=== PATIENT | male | born 1965 | race Hispanic/Latino ===

== ENCOUNTER 2019-09-12 | Emergency (ER) | payer SELFPAY ==
[2019-09-12] MEDS ORDERED: BACTRIM DS1 TAB PO (12:00)
== END 2019-09-12 12:31 | disposition home or self-care (01) | DRG 603 ==
DX: L03.311 Cellulitis of abdominal wall (principal); I10 Essential (primary) hypertension

== ENCOUNTER 2019-12-15 19:25 | Inpatient (IN) | payer SELFPAY ==
[~2019-12-15] VITALS: Ht 165.1 cm; Wt 92.5 kg
[~2019-12-15 19:25] MED LIST: BACTRIM DS1 TAB PO
--- NOTE | 2019-12-15 19:34 | NUR ---
REGISTRATION NOTIFIED US THAT A PT WITH LEFT HAND NUMBNESS IS OUTSIDE. PT STATES THAT PART OF IS LEFT CHEEK STARTED TO GO NUMB YESTERDAY MORNING. UNKNOWN EXACT TIME. PT STATES DECREASE SENSATION TO LEFT ARM. CHARGE NURSE NOTIFIED. PT IS AOX4 AND IN NO DISTRESS. PT STABLE AT THIS TIME
--- NOTE | 2019-12-15 20:50 | NUR ---
AMBULATED TO ROOM WITH STEADY GAIT.
[2019-12-15 21:37] LABS: HEMATOCRIT 43.4 % (39.0-50.0); HEMOGLOBIN 14.7 g/dl (14.0-18.0); IMMATURE GRANULOCYTES 0.1 % (0.0-5.0); MEAN CELL VOLUME 85.1 fL CALC (80.0-100.0); MEAN CORPUSCULAR HGB 28.8 pG CALC (26.0-32.0); MEAN CORPUSCULAR HGB CONC 33.9 g/dL CAL (32.0-36.0); NEUT# 3.19 thou/uL (1.82-7.42); RED BLOOD COUNT 5.1 mill/uL (4.70-6.10); RED CELL DISTRI WIDTH 12.9 % (11.5-15.5)
--- NOTE | 2019-12-15 21:50 | NUR ---
RESTING QUIETLY AWAITING TEST RESULTS
[2019-12-15 21:58] LABS: ALBUMIN 4.3 g/dL (3.2-5.0); ALKALINE PHOSPHATASE 103 u/l (38-126); ANION GAP 9 (6-22 (CALC)); BILIRUBIN, TOTAL 0.7 mg/dL (0.0-1.4); BUN 18 mg/dL (9-20); BUN/CREATININE RATIO 22 (12-20 (CALC)); CARBON DIOXIDE 28 mmol/l (22-30); CHLORIDE 104 mmol/l (95-108); CREATININE 0.8 mg/dL (0.7-1.3); GFR > 60 ML/MIN (>=60 (CALC)); GFR FOR AFR.AMER. > 60 ML/MIN (>=60 (CALC)); POTASSIUM 3.8 mmol/l (3.5-5.1); SGOT/AST 52 u/l (17-59); SODIUM 137 mmol/l (137-146); TOTAL PROTEIN 8.4 g/dL (6.3-8.2)
[2019-12-15 21:59] LABS: ACT PARTIAL THROMBO TIME 26.9 SECONDS (20.0-32.5); INTERNATIONAL NORMALIZED RATIO 1.1 RATIO (0.7-1.3); PROTHROMBIN TIME 11.2 SECONDS (9.0-12.5)
[2019-12-15 22:10] LABS: MYOGLOBIN 41 ng/mL (0 - 121)
--- NOTE | 2019-12-15 22:45 | NUR ---
NO CHANGE IN EXAM
--- NOTE | 2019-12-15 23:44 | NUR ---
EXAM UNCHANGED AWAITING DISPO.
[2019-12-16] VITALS (22 sets, daily range): BP systolic 154–195; BP diastolic 64–106
--- NOTE | 2019-12-16 01:30 | NUR ---
RESTING QUIETLY PENDING ADMISSION TO ICU.
--- NOTE | 2019-12-16 01:51 | NUR ---
Admission Note Report Given to: SARAHI BLANTON Transported by: Wheelchair X Stretcher Transported with: X Nurse Transporter X Patent IV O2 X Software Engineering Specialist Location: X ICU MS2
--- NOTE | 2019-12-16 02:03 | NUR ---
PT ARRIVES TO UNIT @ 203 ON WC, ACCOMPANIED BY Lauren FREGOSO RN. AMBULATORY TO BATHROOM THEN BED. GAIT IS STEADY AND BALANCED. PT ORIENTED TO UNIT AND ROOM. PLAN OF CARE REVIEWED. PT VERBALIZES UNDERSTANDING, DENIES QUESTIONS. PT PORTUGUESE SPEAKING ONLY. TRANSLATION BY THIS RN. FRESH WATER PROVIDED. PT DENIES FURTHER NEEDS @ THIS TIME. ITEMS WITHIN REACH. BED LOCKED IN LOW POSITION. CALL VOGEL WITHIN REACH, AGREES TO CALL PRN.
--- NOTE | 2019-12-16 04:00 | NUR ---
PT APPEARS TO BE SLEEPING COMFORTABLY, NO APPARENT DISTRESS, SNORING, RESPIRATIONS REGULAR AND UNLABORED. CALL VOGEL REMAINS WITHIN REACH.
--- NOTE | 2019-12-16 05:54 | NUR ---
APRIL CPC IN ROOM TO DO EKG
--- NOTE | 2019-12-16 08:00 | NUR ---
PT IS AWAKE, ALERT, ORIENTED X 3. LUNGS CLEAR, RA. PT IS AMBULATORY IN ROOM WITHOUT DIFFICULTY. PT STATES NUMBNESS TO LEFT FACE AND ARM ARE LESS THIS MORNING. PT IS SWEDISH ONLY. VISITOR AT BEDSIDE.
--- NOTE | 2019-12-16 12:00 | NUR ---
PT HAS BEEN PROVIDED BP MEDS ORDERED FOR ELEVATED BP. PT REMAINS FREE OF STROKE-LIKE SYMPTOMS, STATES NUMBNESS TO ARM AND CHEEK LESSENED. PT SEEN BY DR MERRILL AND JOSIAH GREENWOOD THIS MORNING.
--- NOTE | 2019-12-16 16:06 | NUR ---
PT HAS BEEN TO MRI AND THEN TO CAROTID U/S. PT BATHED WHEN HE RETURNED TO ROOM. PHYSICAL THERAPIST AT BEDSIDE AT THIS TIME, PT SEEN AMBULATING IN ROOM WITHOUT DIFFICULTY.
--- NOTE | 2019-12-16 18:18 | NUR ---
PT UPDATED ON RESULTS FROM MRI AND CAROTID U/S, AWARE THAT ECHO MAY NOT HAPPEN UNTIL THURSDAY. NO COMPLAINTS, NO CHANGE IN STATUS.
--- NOTE | 2019-12-16 19:15 | NUR ---
REPORT GIVEN BY SHREYAS MCCALIN. PATIENT IN BED WATCHING TV. RESP EVEN AND UNLABORED. NO S/S DISTRESS NOTED. PATIENT INFORMED TO CALL WITH ANY QUESTIONS OR CONCERNS. PLAN OF CARE DISCUSSED. PATIENT STATES LEFT SIDED NUMBNESSES IS IMPROVING.
--- NOTE | 2019-12-16 22:12 | NUR ---
CONDOM CATH FELL OFF PATIENT. FULL BED BATH AND LINEN CHANGE PERFORMED. PATIENT STATES TESTICLES HURT TO TOUCH WITH WASH CLOTH, REDNESS NOTED IN THE AREA.
--- NOTE | 2019-12-16 22:13 | NUR ---
NEW CONDOM CATH PLACED ON PATIENT.
--- NOTE | 2019-12-16 22:15 | NUR ---
PATIENT DISCONNECTED FROM MONTIOR TO USE THE RESTROOM.
[2019-12-16 22:56] LABS: URINE BILIRUBIN - DIPSTICK NEGATIVE (NEGATIVE); URINE BLOOD DIPSTICK NEGATIVE (NEGATIVE); URINE COLOR YELLOW; URINE GLUCOSE - DIPSTICK >=1000 mg/dL (NEGATIVE); URINE KETONE NEGATIVE (NEGATIVE); URINE LEUK ESTERASE NEGATIVE (NEGATIVE); URINE NITRITE - DIPSTICK NEGATIVE (Negative); URINE PROTEIN - DIPSTICK NEGATIVE (NEG-TRACE)
[2019-12-17] VITALS (13 sets, daily range): BP systolic 137–173; BP diastolic 66–82
--- NOTE | 2019-12-17 00:12 | NUR ---
PATIENT RESTING WITH EYES CLOSED. RESP EVEN AND UNLABORED. NO S/S OF DISTRESS NOTED
--- NOTE | 2019-12-17 02:00 | NUR ---
PATIENT RESTING WITH EYES CLOSED. RESP EVEN AND UNLABORED. NO S/S OF DISTRESS NOTED.
--- NOTE | 2019-12-17 03:47 | NUR ---
PATIENT RESTING IN BED WITH EYES CLOSED. RESP EVEN AND UNLABORED. NO S/S OF DISTRESS NOTED.
--- NOTE | 2019-12-17 05:52 | NUR ---
PATIENT RESTING WITH EYES CLOSED. RESP EVEN AND UNLABORED. NO S/S OF DISTRESS NOTED.
--- NOTE | 2019-12-17 07:39 | NUR ---
PT IS AWAKE, ALERT, ORIENTED X 3, AMBULATORY IN ROOM. PT STATES THAT NUMBNESS TO LEFT LEG IS GONE, LEFT ARM IS NOW ONLY TIP OF FINGERS AND FACE IS NOW ONLY AROUND LIPS. PT DENIES PAIN OR DISCOMFORT.
--- NOTE | 2019-12-17 09:49 | NUR ---
EKG ORDERED AFTER SMALL ELEVATION & DEPRESSION ON TELE. THOMAS DAS. RT @BEDSIDE
--- NOTE | 2019-12-17 12:00 | NUR ---
PT HAS HAD VISIT FROM HIS THIS MORNING. EKG DONE PER SLIGHT ST ELEVATION SEEN ON MONITOR, NO ISSUES SEEN ON EKG. PT SEEN BY DR COTO, WILL NEED ECHO ON THURSDAY PRIOR TO BEING DISCHARGED HOME. NO NEURO SYMPTOMS NOTED.
[2019-12-17 12:28] LABS: HEMOGLOBIN 16.1 g/dl (14.0-18.0); IMMATURE GRANULOCYTES 0.2 % (0.0-5.0); MEAN CORPUSCULAR HGB 28.9 pG CALC (26.0-32.0); MEAN CORPUSCULAR HGB CONC 33.5 g/dL CAL (32.0-36.0); NEUT# 3.36 thou/uL (1.82-7.42); RED BLOOD COUNT 5.58 mill/uL (4.70-6.10)
[2019-12-17 13:00] LABS: ALBUMIN 4.4 g/dL (3.2-5.0); ALKALINE PHOSPHATASE 101 u/l (38-126); ANION GAP 13 (6-22 (CALC)); BILIRUBIN, TOTAL 0.8 mg/dL (0.0-1.4); BUN 17 mg/dL (9-20); BUN/CREATININE RATIO 23 (12-20 (CALC)); CARBON DIOXIDE 24 mmol/l (22-30); CHLORIDE 102 mmol/l (95-108); CREATININE 0.7 mg/dL (0.7-1.3); GFR > 60 ML/MIN (>=60 (CALC)); GFR FOR AFR.AMER. > 60 ML/MIN (>=60 (CALC)); POTASSIUM 4.2 mmol/l (3.5-5.1); SGOT/AST 63 u/l (17-59); SODIUM 135 mmol/l (137-146); TOTAL PROTEIN 8.4 g/dL (6.3-8.2)
[2019-12-17 13:01] LABS: CHOLESTEROL HDL RATIO 4.1 (<4.4 (CALC))
--- NOTE | 2019-12-17 16:21 | NUR ---
PT WAS TAKEN TO MED/SURG, WHERE HE WAS ABLE TO SHOWER. PT RESTS IN THE BED, NO NEURO DEFICITS NOTED.
--- NOTE | 2019-12-17 19:10 | NUR ---
PATENT IS ABLE TO WALK INTO RESTROOM WITHOUT DIFFICULTY, JUST VODED, NO BM, HE REPORTS HE FEELS BLOATED, DI HAVE A BM TODAY. HE IS ALERT AND ORIENTED X3. DOES HAVE LESS SENSATION ON LEFT ARM, LEFT LEG, LEFT FACE SIDE, HE REPORTS THE NUMBNESS ON HIS LEFT SIDE IS GOING AWAY. NO DROOP, NO DRIFTS ON EXTREMITIES. BILATERAL COLOR REPAIRER ARE EQUAL AND STRONG. NO SLURRING. NO PROBLEMS WITH COORDINATION AND VISUAL NGUYỄN. PT WAS EDUCATED WITH POC, MEDIACTIONS HE HAS BEEN TAKING. RAC IV INTACT, FLUSHES PROPERLY, SALINE LOCKED. SR ON TELEMETRY, HR RANGES 70'S. ON RA, SATS 98%, NO RESPIRATORY DISTRESS NOTED. BP 140'S SYSTOLIC AT THIS TIME. SELF REPOSITIONS. CALL LIGHT WITHIN REACH. DIET COLA PROVIDED.
--- NOTE | 2019-12-17 21:28 | NUR ---
PATIENT ABLE TO TOLERATE MEDIACTIONS FOR TONIGHT. EDUACTED ON MEDS RECEIVING, PT UNDERSTANDS. NO ACUTE DISTRESS SHOWN. NO COMPLAINTS OR NEEDS AT THIS TIME. CALL LIGHT WITHIN REACH.
[2019-12-18] VITALS (10 sets, daily range): BP systolic 116–162; BP diastolic 42–81
--- NOTE | 2019-12-18 00:08 | NUR ---
PT AWAKENS EASILY WITH NOISE. NO ACUTE DISTRESS SHOWN. NO COMPLAINTS. CALL LIGHT WITHIN REACH.
--- NOTE | 2019-12-18 04:29 | NUR ---
PT AWAKENS EASILY WHEN SPOKEN TO. OFFERS NO COMPLAINTS OR NEEDS ST THIS TIME. NO ACUTE DISTRESS SHOWN. RAC IV INTACT, SALINE LOCKED.
--- NOTE | 2019-12-18 07:42 | NUR ---
PT SEEN AWAKE, ALERT, NO COMPLAINTS THIS MORNING HE AMBULATES TO WITH STEADY GAIT. PT STATES NUMBNESS TO LEFT CHEEK AND HAND IMPROVED SLIGHTLY FROM YESTERDAY'S EVALUATION.
--- NOTE | 2019-12-18 11:00 | NUR ---
PT SEEN BY DR COTO THIS MORNING, AWARE OF PLAN TO HAVE ECHO DONE TOMORROW AND PROBABLE DISCHARGE AFTER. NO CHANGE IN PATIENT STATUS.
--- NOTE | 2019-12-18 16:33 | NUR ---
PT OVERHEARD MAKING LOTS OF CALLS ON PERSONAL CELL. NO DYPNEA WITH COMMUNICATION. WILL CONTINUE TO MONITOR.
--- NOTE | 2019-12-18 17:26 | NUR ---
PT TAKEN TO MED/SURG TO [place] CHANGED. PT REMAINS FREE OF NEURO DEFICITS EXCEPT FOR THE MINIMAL NUMBNESS TO LEFT LIPS AND LEFT FINGERS. PT EATING SUPPER AT THIS TIME.
--- NOTE | 2019-12-18 19:10 | NUR ---
PATIENT IS AWAKE, ALERT AND ORIENTED X4. GETS UP TO WALK TO THE BATHROOM, NO DIFFICULTY NOTED. NO ACUTE DISTRESS SHOWN. NURSING ASSESSMENT PERFORMED. RAC IV INTACT, FLUSHES PROPERLY, SALINE LOCKED. ON RA, NO RESPIRATORY DISTRESS SHOWN. AFEBRILE, BP 150'S SYSTOLIC AFTER SITTING BACK IN BED FROM BATHROOM. OFFERS NO COMPLAINTS, REQUEST ICED WATER, PROVIDED. POC DISCUSSED. CALL LIGHT WITHIN REACH.
--- NOTE | 2019-12-18 22:18 | NUR ---
PT WENT TO RESTROOM, NOW BACK IN BED, BLANKET PROVIDED PER REQUEST. NO ACUTE DISTRESS SHOWN. OFFERS NO COMPLAINTS AT THIS TIME. CALL LIGHT WITHIN REACH.
[2019-12-19] VITALS (15 sets, daily range): BP systolic 110–155; BP diastolic 65–79
--- NOTE | 2019-12-19 05:39 | NUR ---
PATIENT AWAKENS EASILY WHEN SPOKEN TO. NO ACUTE DISTRESS SHOWN. OFFFERS NO NEEDS OR COMPLAINTS AT THIS TIME. CALL LIGHT MWITHIN REACH.
--- NOTE | 2019-12-19 07:10 | NUR ---
pt resting in bed with eyes closed; no apparent distress noted; easily aroused; assessment completed at this time; pt alert and oriented; ATT Lang Line used for interpretation/ ID #[id number]; denies pain; no n/v noted; resp even and unlabored; lungs clear; skin color wnl; ra; hr reg; strong pulses; no edema noted; sr on monitor; abd soft with bs present; no bm noted per fiction and nonfiction writer prose; voiding clear yellow urine; urinal at bedside; #20 flushed and patent to rac; no redness or edema noted at site; NIH/ neuro assessment completed; pt admits to slight numbness/tingling to left head, lip and fingers; mild facial droop noted to left; maew; grasp equally strong; plan of care/ am meds explained; call light within reach; will continue to monitor
--- NOTE | 2019-12-19 08:10 | NUR ---
pt awake in bed eating breakfast; no apparent distress noted; sr on monitor; iv intact; call light within reach; will continue to monitor
--- NOTE | 2019-12-19 08:42 | NUR ---
Dr Zhang present at bedside to assess pt and discuss plan of care; ATT Line utilized; inpterpreter ID #[id number]
--- NOTE | 2019-12-19 10:15 | NUR ---
awake in bed; portable phone provided as per request; sr on monitor; no apparent distress noted; no change in neuro status; iv intact; call light within reach; will continue to monitor
--- NOTE | 2019-12-19 12:00 | NUR ---
awake in bed; offers no complaints; no apparent distress noted; denies pain; sr on monitor; no changes in neuro status; PT at bedside for evaluation with gritting machine operator; pt updated in plan of care/ possible discharge; call light within reach; will continue to monitor
--- NOTE | 2019-12-19 12:03 | NUR ---
PT note Patient is seen again prior to DC to ensure independence. NO problems with swallowing, no problems with donning and doffing clothing or button use with left hand. He glances to left, he has no problems with [facility] or [facility] His Am Pac score is 22 indicating he is ok to DC for home. He assures me he has access to HTN medication and is independent with amb having a DGI 05/17
--- NOTE | 2019-12-19 14:00 | NUR ---
pt resting in bed with eyes closed; easily aroused; offers no complaints; sr on monitor; iv intact; pt offers no complaints; no changes in neuro status; call light within reach; will continue to monitor
--- NOTE | 2019-12-19 16:20 | NUR ---
awake in bed; no apparent distress noted; pt offers no complaints; iv intact and saline locked; no redness or edema noted at site; sr on monitor; awaiting echo; pt inquiring of discharge; plan of care explained; call light within reach; will continue to monitor
[2019-12-19] MEDS ORDERED: AMLODIPINE BESYL5 MG PO (17:38)
[2019-12-19] MEDS ORDERED: ASPIRIN ADULT L81 M2 PO (17:38)
[2019-12-19] MEDS ORDERED: ATORVASTATIN CA40 MG PO (17:38)
[2019-12-19] MEDS ORDERED: PLAVIX75 MG PO (17:38)
[2019-12-19] MEDS ORDERED: LISINOPRIL20 M1 PO (17:38)
[2019-12-19] MEDS ORDERED: METFORMIN500 M2 PO (17:42)
--- NOTE | 2019-12-19 17:53 | NUR ---
ATT Kirk Line called per film writer; home health administrator ID# [id number]; discharge instructions and follow up care explained in great detail; all medication prescriptions explained; good rx coupons to be printed; scripts to be taken to [facility]; s/s of cva explained in detail; pt present with opportunity for questions; questions answered; pt admits understanding information provided; awaiting healthcare technician; will continue to monitor
--- NOTE | 2019-12-19 18:41 | NUR ---
awake in bed; no apparent distress noted; awaiting reproduction technician; iv intact; report given to Nadya Luna
--- NOTE | 2019-12-19 19:00 | NUR ---
medical laboratory technologist present at bedside
--- NOTE | 2019-12-19 19:28 | NUR ---
ECHO COMPLETED. PT INFORMED THAT MD WILL F/U WITH RESULTS
--- NOTE | 2019-12-19 19:45 | NUR ---
STATES MOST STROKE S/S HAVE GONE WITH EXCEPTION OF NUMB LIPS. HE IS APPRECIATED HOW NICE EVERYONE HER HAS BEEN TO HIM
--- NOTE | 2019-12-19 20:00 | NUR ---
D/C INSTRUCTIONS AND WRITTEN RX GIVEN. EXPLAINED IN [place]. PT DRESSED AND AWAITING RIDE
--- NOTE | 2019-12-19 20:20 | NUR ---
RIDE HERE. TO CAR VIA W/C. THANKED STAFF FOR CARE. WISHED TO F/U WITH RICKA HE REALLY LIKED THE DOCTOR WHO CARED FOR HIM IN THE HOSPITAL.
== END 2019-12-19 22:20 | disposition home or self-care (01) | DRG 66 ==
LOC: ED 19:25 → ED-I 23:03 → ED 23:57 → ICU 23:58
PROVIDERS: Emergency Medicine; Internal Medicine; Nurse Practitioner Family; ADMIT Internal Medicine; ATTEND Internal Medicine
DX: I63.89 Other cerebral infarction (principal); R20.0 Anesthesia of skin; R20.2 Paresthesia of skin; I10 Essential (primary) hypertension; E11.9 Type 2 diabetes mellitus without complications; T46.5X6A Underdosing of other antihypertensive drugs, initial encounter; Z91.128 Patient's intentional underdosing of medication regimen for other reason; Z11.59 Encounter for screening for other viral diseases
CPT/HCPCS: A9579; J1650